=== PATIENT | male | born 1990 | race African-American/Black ===

== ENCOUNTER 2020-02-07 00:45 | Emergency (ER) | payer OTHER ==
[~2020-02-07] VITALS: Ht 177.8 cm; Wt 83.9 kg
[2020-02-07 00:47] VITALS: BP 125/84
[2020-02-07 01:01] VITALS: BP 125/84
== END 2020-02-07 01:02 ==
LOC: MED 00:45
DX: Z04.1 Encounter for examination and observation following transport accident (principal); Z02.89 Encounter for other administrative examinations; V89.2XXA Person injured in unspecified motor-vehicle accident, traffic, initial encounter; Y93.89 Activity, other specified; Y92.89 Other specified places as the place of occurrence of the external cause; Y99.8 Other external cause status
CPT/HCPCS: 99283